=== PATIENT | female | born 1955 | race Caucasian/White ===

== ENCOUNTER 2019-05-30 08:03 | Emergency (ER) | payer BC ==
[~2019-05-30] VITALS: Ht 170.2 cm; Wt 92.8 kg
--- NOTE | 2019-05-30 08:17 | NUR ---
PT PRESENTED TO THE ED D/T RLE SWELLING, WEAKNESS, AND PAIN. PT STATES WAS PREVIOUSLY DIAGNOSED WITH LEG ABSCESS FROM [place] IN [facility]. PT STATES SHE WAS "SLEEP RUNNING" WEDNESDAY MORNING AROUND 0200 OUTSIDE AND NOTICED SWELLING AFTER SHE "WOKE UP."
[2019-05-30] MEDS ORDERED: SERT50TA PO (08:24)
[2019-05-30] MEDS ORDERED: SERT100T PO (08:24)
[2019-05-30] MEDS ORDERED: ASPI-496 PO (08:24)
[2019-05-30] MEDS ORDERED: LIDOCAINE-MPF 1%, 5ML ONE (08:37)
--- NOTE | 2019-05-30 08:39 | NUR ---
JACOB PROVIDED CANDIDA KINSEY WITH LIDOCAINE 1 % PER EMAR.
[2019-05-30] MEDS ORDERED: LIDOCAINE-MPF 1%, 5ML INFIL ONE (09:00)
--- NOTE | 2019-05-30 09:00 | NUR ---
PA AT BEDSIDE PEFORMING I&D.
--- NOTE | 2019-05-30 09:42 | NUR ---
RN CLEANED WOUND AND DRESSED IT PER PA ORDERS. EXTRA SUPPLIES WERE PROVIDED TO PT.
[2019-05-30 09:47] VITALS: BP 151/80
--- NOTE | 2019-05-30 09:47 | NUR ---
PT DISCHARGED HOME IN A STABLE CONDITION. DC INSTRUCTIONS WERE DISCUSSED WITH PT. PT VERBALIZED UNDERSTANDING. NO FURTHER QUESTIONS OR CONCERNS WERE EXPRESSED AT THAT TIME. PT AMBULATED WITH A STEADY GAIT TO DC DESK.
== END 2019-05-30 09:49 | disposition home or self-care (01) ==
LOC: ED 08:50
DX: S80.11XA Contusion of right lower leg, initial encounter (principal); X58.XXXA Exposure to other specified factors, initial encounter; Y93.29 Activity, other involving ice and snow; Y92.89 Other specified places as the place of occurrence of the external cause; Y99.8 Other external cause status
CPT/HCPCS: 10060; 99283